=== PATIENT | male | born 1940 | race Caucasian/White ===

== ENCOUNTER → 2018-07-17 13:28 | Outpatient (CLI) | payer MEDICARE, OTHER, SELFPAY ==
--- NOTE | 2018-07-18 15:48 | PM.PFT.1 ---
Pulmonary Function Test Referral & Results Date Patient Seen: 07/17/18 Requesting provider: Carlos A Escalante Results: The spirometry demonstrates an FVC of 3.67 L which is 113% of predicted. The FEV1 was measured at 2.63 L which is 107% of predicted. The FEV1/FVC ratio was 72 which is 96% of predicted. No bronchodilator was administered No lung volumes were performed The diffusing capacity was measured at 28.7 for which is 96% of predicted. No maximum voluntary ventilation was performed Interpretation: Patient's forced volume spirometry was normal as was his diffusing capacity. Clinical correlation suggested
== END ==
PROVIDERS: Family Provider Family Medicine; PCP Family Medicine; Visit Provider Internal Medicine Cardiovascular Disease
DX: R79.81 Abnormal blood-gas level (principal)
CPT/HCPCS: 94060; 94726; 94729

== ENCOUNTER → 2019-05-15 08:53 | Outpatient (CLI) | payer MEDICARE, OTHER, SELFPAY ==
--- NOTE | 2019-05-15 | DI.US.S_ITS ---
LIMITED ULTRASOUND OF LEFT BREAST: 05/15/2019 CLINICAL: Palpable left breast lump. Comparison is made to exam dated: 05/15/2019 [facility]. Color flow and real-time ultrasound of the left breast retroareolar were performed. Kelly scale images of the real-time examination were reviewed. There is an irregular area of fibroglandular tissue with an indistinct margin in the left breast central to the nipple anterior depth. This correlates as palpated and with mammography findings. Color flow imaging demonstrates that there is no increase in vascularity. No discrete mass. Comparison to the right retroareolar breast was preformed. No abnormality in the right retroareolar breast. IMPRESSION: PROBABLY BENIGN No discrete mass. The irregular area of fibroglandular tissue in the left breast most likely represents asymmetric gynecomastia and is probably benign. A follow-up mammogram and an ultrasound in 6 months is recommended to demonstrate stability. The patient should return for further evaluation if there is a significant change. Exam findings and recommendation were conveyed to the patient by the amalgamator. This exam was interpreted at Station ID: [id number]. Electronically Signed By: Luis Salinas M.D. slc/:05/15/2019 11:28:34 letter sent: Followup Recommended Ultrasound BI-RADS: 3 Probably benign
--- NOTE | 2019-05-15 | DI.MG.S_ITS ---
MALE BILATERAL DIGITAL DIAGNOSTIC MAMMOGRAM 3D/2D: 05/15/2019 Male breast. Baseline exam. There is an irregular area of fibroglandular tissue with an indistinct margin in the left breast central to the nipple anterior depth. This most likely represents asymmetric gynecomastia. This correlates as palpated. No other significant masses, calcifications, or other findings are seen in either breast. Left upper chest pacemaker. IMPRESSION: INCOMPLETE: NEEDS ADDITIONAL IMAGING EVALUATION Corresponding to the palpable abnormality is an irregular area of retroareolar fibroglandular tissue in the left breast. This most likely represents asymmetric gynecomastia and is indeterminate. An ultrasound is recommended and will immediately follow. This exam was interpreted at Station ID: [id number]. NOTE: For mammograms, a report in lay terms will be sent to the patient. Approximately 15% of breast malignancies will not be visualized mammographically. In the management of a palpable breast mass, a negative mammogram must not discourage biopsy of a clinically suspicious lesion. Electronically Signed By: Luis Salinas M.D. slc/:05/15/2019 11:10:47 ACR BI-RADS Category 0: Incomplete [id number]
--- NOTE | 2019-05-15 | DI.US.S_ITS ---
PROCEDURE: US SCROTUM INDICATIONS: LEFT TESTICULAR PAIN TECHNIQUE: Real-time scanning was performed of the scrotum and testicles, with image documentation. Color and pulse Doppler interrogation was performed of both testicles. COMPARISON: [facility], , TESTICLE IMAGING, 07/05/2015, 13:07. FINDINGS: Right: Testicle is normal in size at 3.4 x 1.1 x 2.3 cm, and homogenous in echotexture. Epididymis is normal in overall size and epididymal tail is prominent. No hydrocele or varicoceles. Overlying scrotal skin is normal in thickness. Left: Testicle is normal in size at 3.0 x 1.2 x 2.3 cm, and homogeneous in echotexture. Epididymis is normal in overall size and epididymal tail is prominent. No hydrocele or varicoceles. Overlying scrotal skin is normal in thickness. Doppler: Color and pulse Doppler demonstrate normal and symmetric arterial flow in both testicles. IMPRESSION: Prominence of the epididymal tail bilaterally; otherwise normal appearance of the testicles. Dictated by: Ty GUPTA Interpreted: Nusrat Liz MD on 05/15/2019 at 11:39 Approved by: Nusrat Lzi M.D. on 05/15/2019 at 14:42
== END ==
PROVIDERS: PCP Family Medicine; Visit Provider Family Medicine
DX: R92.8 Other abnormal and inconclusive findings on diagnostic imaging of breast (principal); N62 Hypertrophy of breast; N50.812 Left testicular pain; Z95.0 Presence of cardiac pacemaker
CPT/HCPCS: 76642; 76870; 77066; G0279

== ENCOUNTER → 2019-05-27 10:47 | Outpatient (CLI) | payer MEDICARE, OTHER, SELFPAY ==
--- NOTE | 2019-05-27 | DI.CT.S_ITS ---
PROCEDURE: CT LUMBAR SPINE WO CON INDICATIONS: Radiculopathy, lumbar region TECHNIQUE: Noncontrast 3 mm thick sections acquired from the T12 level to the sacrum. Sagittal and coronal reformats were constructed. For radiation dose reduction, the following was used: automated exposure control. COMPARISON: [facility] [place], CR, XR LUMBAR SPINE 2 OR 3 VIEWS, 02/17/2019, 13:26. FINDINGS: Image quality: Excellent. Bones: There is normal bony alignment. No acute vertebral body compression fractures. No suspicious lytic or blastic bony lesions. No pars defects. L1-L2: Normal appearance. L2-L3: Disc height is normal. Mild anterior endplate osteophytosis. Mild, diffuse disc bulge No central stenosis. No neural foraminal narrowing. No definite neural compression. L3-L4: Disc height is normal. Mild, diffuse disc bulge. Mild narrowing of the central canal. Mild bilateral neural foraminal narrowing. No definite neural compression. L4-L5: Disc height is normal. Mild, diffuse disc bulge. Mild facet and mild ligamentum flavum hypertrophy. Moderate to severe narrowing of the central canal. Moderate bilateral neural foraminal narrowing. No definite neural compression. L5-S1: Slight loss of disc height. Vacuum disc phenomenon. Moderate, diffuse disc bulge. Mild bilateral facet hypertrophy. Mild narrowing of the central canal. Severe bilateral neural foraminal narrowing with compression of the exiting L5 nerve roots. Soft tissues: No retroperitoneal masses or hematomas. Visualized aorta is normal in caliber. Scattered atherosclerotic calcifications noted in the visualized abdominal and pelvic vasculature. IMPRESSION: 1. Multilevel degenerative disc disease. 2. Multilevel facet arthropathy. 3. Moderate to severe L4-L5 central canal narrowing. Mild L3-L4 and L5-S1 central canal narrowing. 4. Severe bilateral L5-S1 neural foraminal narrowing. Moderate bilateral L4-L5 neural foraminal narrowing. Mild bilateral L3-L4 neural foraminal narrowing. 5. Compression of the exiting bilateral L5 nerve roots secondary to neural foraminal narrowing. Please correlate clinically. Dictated by: Codie Kaur MD, PhD on 05/27/2019 at 17:19 Approved by: Codie Kaur MD, PhD on 05/27/2019 at 17:46
== END ==
PROVIDERS: PCP Family Medicine; Visit Provider Family Medicine
DX: M51.16 Intervertebral disc disorders with radiculopathy, lumbar region (principal); M51.17 Intervertebral disc disorders with radiculopathy, lumbosacral region; M47.26 Other spondylosis with radiculopathy, lumbar region; M47.27 Other spondylosis with radiculopathy, lumbosacral region; M48.061 Spinal stenosis, lumbar region without neurogenic claudication; M48.07 Spinal stenosis, lumbosacral region
CPT/HCPCS: 72131

== ENCOUNTER 2019-08-27 11:51 | Outpatient (CLI) | payer MEDICARE, OTHER, SELFPAY ==
[2019-08-27] VITALS (7 sets, daily range): BP systolic 102–145; BP diastolic 53–69; PULSE 60–81; RESP 16; TEMP 36.1; O2SAT 97–100
--- NOTE | 2019-08-27 11:54 | DI.RAD.S_ITS ---
PROCEDURE: PAIN L/S TRANSFORAMINAL INJECT INDICATIONS: RADICULAR BACK PAIN FINDINGS: Fluoroscopic spot filming was performed to verify placement of spinal needles at the L4-L5 level(s), as labeled on the films. Appropriate location(s) of the needle tip(s) was confirmed by injection of iodinated contrast. IMPRESSION: Fluoroscopy guidance for pain management. Dictated by: Loree Flores M.D. on 08/27/2019 at 15:46 Approved by: Loree Flores M.D. on 08/27/2019 at 15:47
[2019-08-27] MEDS: MIDAZOLAM 5 MG/5 ML VIAL IV (13:17)
[2019-08-27] MEDS: BETAMETHASONE 30 MG/5 ML MDV 6 MG INJ (13:22)
[2019-08-27] MEDS: IOPAMIDOL 15 ML VIAL 3 ML INJ (13:22)
[2019-08-27] MEDS: BUPIVACAINE 0.25% (PF) VIAL 2 ML INJ (13:22)
[2019-08-27] MEDS: DEXAMETHASONE 10 MG/ML VIAL 20 MG INJ (13:23)
--- NOTE | 2019-08-27 13:26 | PC.NURSE ---
ASSISTING PT OFF TABLE AND TRANSPORTING TO POST PROC AREA IN STABLE CONDITION. PASSING RN CARE OF PT OFF TO JACQUELYN Freedman RN.
--- NOTE | 2019-08-27 13:28 | P.PCN_ITS ---
Procedures Date/Time Date of procedure: 08/27/19 Time of procedure: 13:28 General Procedure description: PREOP DIAGNOSIS 1. FORMAINAL STENOSIS WITH LE SYMPTOMS POST OP DIAGNOSIS 1. FORMAINAL STENOSIS WITH LE SYMPTOMS PROCEDURES 1. FLUOROSCOPICALLY GUIDED CONTRAST CONTROLLED TRANSFORAMINAL EPIDURAL STEROID INJECTION - LEFT L4/5 PHYSICIAN: Antoni Chaudhary DO INDICATIONS: Armando is referred by and Rikki for treatment of Foraminal Stenosis with Left LE Symptoms FINDINGS Foraminal Nerve Root Compression secondary to disc disease and facet hypertrophy DESCRIPTION OF PROCEDURE: Following review of allergy and review of potential side effects and complications, including, but not necessarily limited to, infection, allergic reaction, local tissue breakdown, stroke, temporary or permanent nerve injury, paralysis, and possible , the patient indicated that the patient understood and agreed to proceed. An informed consent document was signed by the patient, witnessed by a nurse, and placed in the patient's chart. Additionally, other treatment options including medications, modalities, and physical therapy were reviewed with the patient. After review of previous anaesthesic history and IV conscious sedation the patient was deemed safe to proceed with todays procedure with IV conscious sedation as ASA class II designation. Safety time-out was performed to confirm patient ID, procedure to be performed and site of procedure. IV sedation was accomplished with 2mg of Versed administered by the RN after DO order, titrated to patient comfort during the course of the procedure while the patient remained responsive to all verbal commands In the prone position following sterile prep and drape of the lumbar region, the left L4/5 posterior neuroforamen was identified fluoroscopically. The skin was anesthetized via a 25-gauge 1.5-inch needle with 1% lidocaine solution. At this point, a 25-gauge 3.5-inch spinal needle was atraumatically introduced and advanced under fluoroscopic guidance through the posterior left L4/5 neuroforamen to approximately the anterior aspect of the canal. Depth was confirmed on lateral view. Following negative aspiration, injection of approximately 1.5cc of Isovue 200 under live fluoroscopy in the AP view confirmed excellent flow along the nerve root, into the epidural space without vascular or intrathecal uptake observed Radiological data, including multiple fluoroscopic views of the lumbosacral spine, reveal a spinal needle at the left L4/5 posterior neuroforamen. Subsequent views show flow of contrast material flowing superiorly and inferiorly along the nerve root confirming epidural flow. Subsequently, a test dose of 1.5cc of 1% lidocaine solution was administered and patient was observed for two minutes for signs or symptoms of complications, i ncluding abdominal pain, shortness of breath, bilateral upper or lower extremity weakness, nausea and vomiting, prior to steroid injection. At this point, a total of 3cc or 20mg of dexamethasone and 6mg of betamethasone was injected without incident. The procedure tolerated the procedure well without signs or symptoms of complications prior to transfer to the recovery area continued monitoring without incident. The patient was then transferred to the recovery area where they were observed for an appropriate time after the injection. The patient reported a VAS score of 7 prior to the procedure and a post- procedure VAS of 0. Total Fluoroscopy Time: 6 seconds Total Conscious Sedation Time: 24min POST OP INSTRUCTIONS The patient was provided a Pain Log to continue to record their response to the target-specific procedure prior to follow-up visit with their referring physician. Additionally, specific post-injection care instructions and a contact number to our office were provided if concerns arise regarding possible complications associated with the procedure are suspected. Antoni Chaudhary DO Complications: none
--- NOTE | 2019-08-27 15:57 | PC.NURSE ---
Post procedure note: Patient arrived at 1335. Awake and alert. VSS, O2 sat WNL on RA. Able to transfer to recliner from w/c without difficulty. Handoff report received from Angel Bassett RN. 0/10 pain level. Discharge instructions reviewed with patient and with good understanding. Discharged to home w/c to waiting room with at 1355
== END 2019-08-27 13:55 | disposition home or self-care (01) ==
LOC: RAD 11:53
PROVIDERS: Family Provider Neurological Surgery; PCP Family Medicine; Visit Provider Physical Medicine & Rehabilitation
DX: M48.061 Spinal stenosis, lumbar region without neurogenic claudication (principal); M51.16 Intervertebral disc disorders with radiculopathy, lumbar region; M16.0 Bilateral primary osteoarthritis of hip
CPT/HCPCS: 64483; 72170; 72220; 99152; J0702; J1100; J2250; J3010

== ENCOUNTER → 2019-08-27 14:51 | Outpatient (CLI) | payer MEDICARE, OTHER, SELFPAY ==
--- NOTE | 2019-08-27 | DI.RAD.S_ITS ---
PROCEDURE: XR PELVIS 1-2V INDICATIONS: pain TECHNIQUE: 1 view(s) of the pelvis acquired. COMPARISON: [facility] [place], CR, PELVIS W/LAT HIP (RT) (PNL), 02/07/2015, 13:41. FINDINGS: Bones: No fractures or dislocations. No suspicious bony lesions. Mild symmetric degenerative joint disease in hips bilaterally. Soft tissues: Visualized bowel gas pattern is normal. Vascular calcifications consistent with atherosclerosis. IMPRESSION: No acute osseous abnormalities. Mild degenerative joint disease. Dictated by: Loree Flores M.D. on 08/27/2019 at 16:56 Approved by: oLree Flores M.D. on 08/27/2019 at 16:57
--- NOTE | 2019-08-27 | DI.RAD.S_ITS ---
PROCEDURE: XR SACRUM COCCYX MIN 2V INDICATIONS: pain TECHNIQUE: 3 views of the sacrum and coccyx acquired. COMPARISON: [facility], CR, XR PELVIS 1-2V, 08/27/2019, 14:56. FINDINGS: Bones: No fractures or dislocations. No suspicious bony lesions. Soft tissues: Visualized bowel gas pattern is normal. No suspicious soft tissue densities. IMPRESSION: No acute osseous abnormalities. If clinical symptoms persist or clinical suspicion for pathology is high, a repeat examination in 7-10 days, or advanced imaging such as CT or MRI is suggested for further evaluation. Dictated by: Loree Flores M.D. on 08/27/2019 at 16:55 Approved by: Loree Flores M.D. on 08/27/2019 at 16:55
== END ==
PROVIDERS: Family Provider Neurological Surgery; PCP Family Medicine; Visit Provider Dentist Orthodontics and Dentofacial Orthopedics
DX: M48.061 Spinal stenosis, lumbar region without neurogenic claudication (principal); M16.0 Bilateral primary osteoarthritis of hip
CPT/HCPCS: 72170; 72220

== ENCOUNTER → 2020-03-11 09:51 | Outpatient (CLI) | payer MEDICARE, OTHER, SELFPAY ==
[2020-03-12 18:41] LABS: COVID19 Sendout Not Detected (Not Detect)
== END ==
PROVIDERS: Family Provider Neurological Surgery; PCP Family Medicine; Visit Provider Physician Assistant
DX: Z11.59 Encounter for screening for other viral diseases (principal)
CPT/HCPCS: 87635

== ENCOUNTER → 2020-03-14 13:08 | Outpatient (CLI) | payer MEDICARE, OTHER, SELFPAY ==
--- NOTE | 2020-03-20 12:53 | PM.PFT.1 ---
Pulmonary Function Test Referral & Results Date Patient Seen: 03/14/20 Requesting provider: Carlos A Escalante Results: The spirometry demonstrates an FVC of 3.47 L which is 108% of predicted. The FEV1 was measured at 2.46 L which is 102% of predicted. The FEV1/FVC ratio was 71 which is 95% of predicted. The diffusing capacity was measured at 30.63 which is 103% of predicted. Interpretation: This study demonstrates normal forced capacities and is essentially normal. Diffusing capacity is also normal. PFTs done in July 2018 are similarly normal.
== END ==
PROVIDERS: Family Provider Neurological Surgery; PCP Family Medicine; Referring Provider Internal Medicine Cardiovascular Disease; Visit Provider Internal Medicine Cardiovascular Disease
DX: I47.2 Ventricular tachycardia (principal); Z79.899 Other long term (current) drug therapy
CPT/HCPCS: 94010

== ENCOUNTER → 2021-02-03 11:29 | Outpatient (CLI) | payer MEDICARE, OTHER, SELFPAY ==
[2021-02-03 19:49] LABS: Alanine Aminotransferase 12 IU/L (<50); Albumin 3.6 g/dL (3.5-5.0); Albumin Globulin Ratio 1.5 (1.0-2.8); Alkaline Phosphatase 55 U/L (38-126); Aspartate Aminotransferase 19 IU/L (17-59); BUN Creatinine Ratio 17.8 (6-22); Bilirubin Total 0.8 mg/dL (0.2-1.3); Blood Urea Nitrogen 13 mg/dL (9-20); Carbon Dioxide 28 mmol/L (22-32); Chloride 102 mmol/L (98-107); Estimated Glomerular Filt Rate > 60.0 mL/min (>60); Globulin 2.4 g/dL (1.7-4.1); Glucose 106 mg/dL (80-110); HEMOLYSIS < 15 (0-50); Potassium 4.3 mmol/L (3.4-5.1); Sodium 135 mmol/L (137-145)
[2021-02-03 20:04] LABS: Free T4, Direct Thyroxine 1.12 ng/dL (0.78-2.19)
[2021-02-03 20:19] LABS: Thyroid Stimulating Hormone 2.57 uIU/mL (0.47-4.68)
== END ==
PROVIDERS: Physician Assistant; Family Provider Neurological Surgery; PCP Family Medicine
DX: I10 Essential (primary) hypertension (principal); Z51.81 Encounter for therapeutic drug level monitoring
CPT/HCPCS: 80053; 84439; 84443

== ENCOUNTER → 2021-02-15 12:06 | Outpatient (CLI) | payer MEDICARE, OTHER, SELFPAY ==
[2021-02-15 20:16] LABS: Add Manual Diff / Slide Review NO; Basophils Absolute Auto 0 /uL (0-100); Basophils Percent Auto 0.4 % (0-2); Eosinophils Absolute Auto 100 /uL (0-450); Eosinophils Percent Auto 1.5 % (2-4); Hematocrit 37.8 % (41-53); Hemoglobin 12.8 g/dL (13.5-17.5); Lymphocytes Absolute Auto 1800 /uL (1100-4500); Lymphocytes Percent Auto 33.7 % (25-40); Mean Corpuscular HGB Conc 33.9 % (30-36); Mean Corpuscular Hemoglobin 34.7 PG (26-34); Mean Corpuscular Volume 102.6 fL (80-100); Monocytes Absolute Auto 500 /uL (0-900); Monocytes Percent Auto 10.2 % (3-14); Neutrophils Absolute Auto 2800 /uL (1500-7000); Neutrophils Percent Auto 54.2 % (50-75); Platelet Count 139 X10^3/uL (150-400); Red Blood Cell Count 3.69 X10^6/uL (4.5-5.9); Red Cell Distribution Width 13.6 % (11.6-14.8); White Blood Cell Count 5.2 X10^3/uL (4.5-11.0)
[2021-02-15 20:19] LABS: Reticulocyte Count, Percent 1.5 % (0.87-2.60)
[2021-02-15 20:23] LABS: Alanine Aminotransferase 13 IU/L (<50); Albumin 4.1 g/dL (3.5-5.0); Albumin Globulin Ratio 1.6 (1.0-2.8); Alkaline Phosphatase 59 U/L (38-126); Aspartate Aminotransferase 20 IU/L (17-59); BUN Creatinine Ratio 21.9 (6-22); Bilirubin Total 0.7 mg/dL (0.2-1.3); Blood Urea Nitrogen 14 mg/dL (9-20); Calcium 9.6 mg/dL (8.4-10.2); Carbon Dioxide 30 mmol/L (22-32); Chloride 104 mmol/L (98-107); Cholesterol 198 mg/dL (140-199); Estimated Glomerular Filt Rate > 60.0 mL/min (>60); Globulin 2.5 g/dL (1.7-4.1); Glucose 104 mg/dL (80-110); HDL Cholesterol 79 mg/dL (40-60); HEMOLYSIS < 15 (0-50); LDL Cholesterol Calculated 105 mg/dL (<100); Potassium 5.2 mmol/L (3.4-5.1); Sodium 139 mmol/L (137-145); Total Protein 6.6 g/dL (6.3-8.2); Triglycerides 69 mg/dL (35-150)
[2021-02-15 20:55] LABS: Ferritin 71 ng/mL (18-464)
[2021-02-15 21:25] LABS: Folate 6.9 ng/mL (2.76-20.0); Vitamin B12 438 pg/mL (239-931)
== END ==
PROVIDERS: Family Provider Neurological Surgery; PCP Family Medicine; Visit Provider Family Medicine
DX: D64.9 Anemia, unspecified (principal); Z51.81 Encounter for therapeutic drug level monitoring; I63.9 Cerebral infarction, unspecified; I47.2 Ventricular tachycardia; R53.83 Other fatigue; Z79.899 Other long term (current) drug therapy
CPT/HCPCS: 80053; 80061; 82607; 82728; 82746; 85025; 85045

== ENCOUNTER → 2021-03-31 12:46 | Outpatient (CLI) | payer MEDICARE, OTHER, SELFPAY ==
[2021-03-31 14:22] LABS: COVID19 -Nasal RAPID Negative (Negative)
== END ==
PROVIDERS: Family Provider Neurological Surgery; Referring Provider Internal Medicine; Visit Provider Internal Medicine
DX: Z20.822 Contact with and (suspected) exposure to COVID-19 (principal)
CPT/HCPCS: 87635; C9803

== ENCOUNTER → 2021-03-31 12:52 | Outpatient (CLI) | payer MEDICARE, OTHER, SELFPAY ==
--- NOTE | 2021-04-05 09:09 | PM.PFT.1 ---
Pulmonary Function Test Referral & Results Date Patient Seen: 03/31/21 Requesting provider: Darci Meneses Results: The spirometry demonstrates an FVC of 3.32 L which is 89% of predicted. The FEV1 was measured at 2.33 L which is 88% of predicted. The FEV1/FVC ratio was 70 which is 97% of predicted. Following the administration of bronchodilator there was 47% improvement in FEF 25-75%. Lung volumes show an SVC of 3.55 L which is 86% of predicted. The diffusing capacity was measured at 27.63 which is 93% of predicted. The maximum voluntary ventilation was normal Interpretation: This study demonstrates probably normal spirometry. There was a minimal improvement in small airway flow following bronchodilator as noted above based on improvement in FEF 25-75%. This together with slight curve to shape a flow volume loop suggest the presence of possibly very very mild obstructive lung disease
== END ==
PROVIDERS: Family Provider Neurological Surgery; Referring Provider Internal Medicine Cardiovascular Disease; Visit Provider Internal Medicine Cardiovascular Disease
DX: J47.9 Bronchiectasis, uncomplicated (principal); J98.8 Other specified respiratory disorders; Z79.899 Other long term (current) drug therapy; Z87.891 Personal history of nicotine dependence; Z20.822 Contact with and (suspected) exposure to COVID-19; I47.2 Ventricular tachycardia
CPT/HCPCS: 87635; 94060; 94726; 94729; C9803